=== PATIENT | female | born 1985 | race African-American/Black ===

== ENCOUNTER 2016-08-19 19:59 | Emergency (ER) | payer SELFPAY ==
[~2016-08-19] VITALS: Ht 175.3 cm; Wt 108.9 kg
[~2016-08-19 19:59] MED LIST: ABILIFY15 MG ORAL; AUGMENTIN TAB875 MG ORAL; BACTRIM DS TAB1 EAC1 ORAL; BACTRIM-DS1 EA PO; BENADRYL25 M3 PO; CEPHALEXIN500 MG ORAL; CEPHALEXIN500 MG PO; CLEOCIN HCL150 MG PO; CLINDAMYCIN HC150 MG ORAL; IBUPROFEN600 MG ORAL; IBUPROFEN800 MG ORAL; KEFLEX500 MG ORAL; MEDROL DOSEPAK4 MG ORAL; NAPROSYN375 M1 ORAL; NKM; NORCO 5-325 TA1 EAC1 ORAL; NORCO 5-325 TA1 EACH ORAL; TRAMADOL HCL50 MG ORAL; TRIAMCINOLONE A60 M1 TP
[2016-08-19 20:30] VITALS: BP 107/76
[2016-08-19] MEDS ORDERED: KEFLEX500 MG ORAL (21:25)
[2016-08-19] MEDS ORDERED: DOXYCYCLINE MO100 MG ORAL (21:25)
[2016-08-19] MEDS ORDERED: NORCO 5-325 TA1 EAC1 ORAL (21:26)
[2016-08-19] MEDS ORDERED: Lidocaine 2% 20mg/ml/Epi 0.005mg/ml 20ml vial INJ ONE (21:30)
[2016-08-19 22:15] VITALS: BP 110/78
--- NOTE | 2016-08-22 12:25 | Emergency Room Report ---
History of Present Illness General Chief Complaint: Skin Rash/Abscess Source: Patient Present Illness HPI This is a 31-year-old female presented after increased redness and swelling to her right leg as well as her right buttock crease. Patient gradual onset of symptoms of the past 2 days. She denied any fever. She had prior history of similar symptoms in the past. Patient denied any history of diabetes. She states that she has had hidradenitis. She's not currently taking antibiotics and has not taken antibiotics recently. Allergies: Uncoded Allergies: nuts (Allergy, Severe, Anaphylaxis, 11/18/13) Patient History Past Medical History: see triage record Last Menstrual Period: last week Reviewed Nursing Documentation: PMH: Agreed, PSxH: Agreed Review of Systems All Other Systems: negative except mentioned in HPI Physical Exam Vital Signs Date Time Temp Pulse Resp B/P Pulse Ox O2 Delivery O2 Flow Rate FiO2 08/19/16 20:27 97.9 89 16 104/74 98 Room Air General Appearance: well appearing, no apparent distress, alert, GCS 15, non- toxic Head: normocephalic, atraumatic ENT: hearing grossly normal, normal voice Neck: full range of motion, supple Respiratory: no respiratory distress, speaking full sentences Cardiovascular #1: regular rate, rhythm Gastrointestinal: normal inspection, soft Musculoskeletal: no calf tenderness Neurologic: normal gait Psychiatric: mood/affect normal Skin: other - fluctuance to right labial area, right thigh Procedures Incision and Drainage Incision and Drainage : Consent: Verbal Blade Size: 11 I & D Procedure: betadine prep, sterile drapes applied, sterile dressing applied Wound Location: pelvis Wound's Depth, Shape: superficial Wound Length (cm): 1 Wound Explored: clean Anesthesia: Lidocaine w/ Epi Volume Anesthetic (ccs): 4 Patient Tolerated: Well Complications: None Progress large amount of green purulent discharge Medical Decision Making Diagnostic Impression: Primary Impression: Abscess ER Course Patient presented for skin rash. Differential diagnosis included was not limited to abscess, cellulitis, folliculitis, Fourniere's gangrene Patient's benign exam and does not appear to require any further imaging or laboratory testing at this time. was negative. Patient given prescription for Keflex and Bactrim. The patient is advised to follow up with primary care doctor in 2 days for recheck. Patient is advised to return if any worsening condition or if any changes in status that are concerning. Last Vital Signs Date Time Temp Pulse Resp B/P Pulse Ox O2 Delivery O2 Flow Rate FiO2 08/19/16 22:15 98.0 84 17 110/78 100 Room Air Status: improved Disposition: HOME, SELF-CARE Condition: Stable Scripts Hydrocodone Bit/Acetaminophen 5-325* (NORCO 5-325 TABLET*) 1 Each Tablet 1 TAB ORAL Q6HR Y for For Pain, #10 TAB Prov: Jesse Mensah 08/19/16 Cephalexin* (KEFLEX*) 500 Mg Capsule 500 MG ORAL Q6H, #28 CAP 0 Refills Prov: Jesse Mensah 08/19/16 Doxycycline Monohydrate* (DOXYCYCLINE MONOHYDRATE*) 100 Mg Capsule 100 MG ORAL Q12H, #14 CAP 0 Refills Prov: Jesse Mensah 08/19/16 Referrals: NOT CHOSEN [facility]/,REFERRING (PCP) Patient Instructions: Jesse Tejada Aug 22, 2016 12:25
== END 2016-08-19 22:15 | disposition home or self-care (01) ==
LOC: EMR 20:44
DX: L02.415 Cutaneous abscess of right lower limb (principal); Z91.018 Allergy to other foods
CPT/HCPCS: 81025; 99284

== ENCOUNTER 2016-12-01 10:43 | Emergency (ER) | payer MEDICAID ==
[~2016-12-01] VITALS: Ht 175.3 cm; Wt 115.7 kg
[~2016-12-01 10:43] MED LIST changes: +DOXYCYCLINE MO100 MG ORAL
[2016-12-01] MEDS ORDERED: IBUPROFEN600 MG ORAL (11:47)
[2016-12-01] MEDS ORDERED: ACETAMINOPHEN-1 EAC1 ORAL (11:47)
[2016-12-01] MEDS ORDERED: KEFLEX500 MG ORAL (11:47)
[2016-12-01 12:01] VITALS: BP 102/71
--- NOTE | 2016-12-05 14:31 | Emergency Room Report ---
History of Present Illness General Chief Complaint: General Complaint Source: Patient Present Illness HPI Patient presents with complaints of discomfort to the right buttock area She feels that there is an abscess in that region She reports that she has had this several times in the past Denies any fevers or chills Pain associated with it as /10 Denies any vomiting or diarrhea Allergies: Uncoded Allergies: nuts (Allergy, Severe, Anaphylaxis, 11/18/13) Patient History Past Medical History: see triage record Pertinent Family History: none Last Menstrual Period: 11/21/16 Reviewed Nursing Documentation: PMH: Agreed, PSxH: Agreed Nursing Documentation-PMH Past Medical History: No History, Except For Review of Systems All Other Systems: negative except mentioned in HPI Physical Exam Vital Signs Date Time Temp Pulse Resp B/P (MAP) Pulse Ox O2 Delivery O2 Flow Rate FiO2 12/01/16 10:51 98.1 86 14 116/83 97 Room Air Sp02 EP Interpretation: reviewed, normal General Appearance: well appearing, no apparent distress Head: normocephalic, atraumatic Eyes: bilateral eye PERRL, bilateral eye EOMI ENT: normal pharynx Neck: full range of motion, supple Respiratory: lungs clear, normal breath sounds Cardiovascular #1: regular rate, rhythm Gastrointestinal: normal inspection, non tender, soft Musculoskeletal: normal inspection Neurologic: normal inspection, alert, oriented x3 Skin: other - A deep of the right buttock area there is some small pustular lesions, mild discharge is noted, there is no obvious flaring or streaking of erythema, the area does not appear to spread to the vaginal region Lymphatic: no adenopathy Medical Decision Making Diagnostic Impression: Primary Impression: Abscess ER Course Patient has had multiple areas of infectious pathology in the past Reports that she has a history of hidradenitis At this time the area does not appear to be systemic Patient has placed on antibiotics and requires close outpatient followup for specialty referral Last Vital Signs Date Time Temp Pulse Resp B/P (MAP) Pulse Ox O2 Delivery O2 Flow Rate FiO2 12/01/16 12:01 79 18 102/71 99 Room Air 12/01/16 12:01 98.6 Status: unchanged Disposition: HOME, SELF-CARE Condition: Stable Scripts Acetaminophen With Codeine (T#3) (TYLENOL #3 TAB*) Y Tab 1 TAB ORAL Q8H Y for For Pain, #10 TAB Prov: JAMEHDOR,ALI D.O. 12/01/16 Ibuprofen* (MOTRIN*) 600 Mg Tablet 600 MG ORAL Q8H Y for For Pain, #20 TAB 0 Refills Prov: LUIS MIGUEL HERNANDEZ D.O. 12/01/16 Cephalexin* (KEFLEX*) 500 Mg Capsule 500 MG ORAL Q6H, #28 CAP 0 Refills Prov: LUIS MIGUEL HERNANDEZ D.O. 12/01/16 Referrals: NOT CHOSEN IPA/MD,REFERRING Patient Instructions: Abscess, [id number] Additional Instructions: Patient is provided with the discharge instructions notified to follow up with primary doctor in the next 2-3 days otherwise return to the er with any worsening symptoms. Please note that this report is being documented using [employer] technology. This can lead to erroneous entry secondary to incorrect interpretation by the dictating instrument. LUIS MIGUEL HERNANDEZ D.O. Dec 05, 2016 14:31
== END 2016-12-01 12:01 | disposition home or self-care (01) ==
LOC: EMR 11:17
DX: L02.31 Cutaneous abscess of buttock (principal); Z91.018 Allergy to other foods
CPT/HCPCS: 99284

== ENCOUNTER 2017-01-21 07:45 | Emergency (ER) | payer MEDICAID ==
[~2017-01-21] VITALS: Ht 175.3 cm; Wt 115.7 kg
[~2017-01-21 07:45] MED LIST changes: +ACETAMINOPHEN-1 EAC1 ORAL
[2017-01-21 07:52] VITALS: BP 120/71
[2017-01-21] MEDS ORDERED: IBUPROFEN400 MG ORAL (08:24)
[2017-01-21 08:33] VITALS: BP 117/72
--- NOTE | 2017-01-21 09:27 | Emergency Room Report ---
History of Present Illness General Chief Complaint: Skin Rash/Abscess Source: Patient Present Illness HPI Patient is a 31-year-old female who presented after increased left-sided pain to her axillary area. The patient gradual onset of symptoms over the past 4 days. She reports having prior history of hidradenitis suppuritiva she presenting intermittent abscesses approximately every 3-4 months. She denied any fever. She had not been vomiting. She denies other locations of pain. She had been taking clindamycin for one day. She had a referral to a surgeon but has not yet made an appointment. Allergies: Uncoded Allergies: nuts (Allergy, Severe, Anaphylaxis, 11/18/13) Patient History Past Medical History: see triage record Last Menstrual Period: 01/05/17 Reviewed Nursing Documentation: PMH: Agreed, PSxH: Agreed Nursing Documentation-PM Past Medical History: No Stated History Review of Systems All Other Systems: negative except mentioned in HPI Physical Exam Vital Signs Date Time Temp Pulse Resp B/P (MAP) Pulse Ox O2 Delivery O2 Flow Rate FiO2 01/21/17 07:52 98.1 80 18 120/71 100 Room Air Sp02 EP Interpretation: reviewed, normal General Appearance: normal inspection, well appearing, no apparent distress, alert, GCS 15, non-toxic Head: atraumatic ENT: normal ENT inspection, hearing grossly normal, normal voice Neck: normal inspection, full range of motion, supple, no bony tend Respiratory: normal inspection, lungs clear, normal breath sounds, no respiratory distress, no retraction, no wheezing Cardiovascular #1: regular rate, rhythm, no edema Gastrointestinal: normal inspection, normal bowel sounds, non tender, soft, no guarding, no hernia Genitourinary: no CVA tenderness Musculoskeletal: normal inspection, back normal, normal range of motion Neurologic: normal inspection, alert, oriented x3, responsive, 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, speech normal Psychiatric: normal inspection, judgement/insight normal, mood/affect normal Skin: no rash, other - fluctuant area to left axilla about 3 cm in size Procedures Incision and Drainage Incision and Drainage : Consent: Emergent Site: axillary Blade Size: 11 I & D Procedure: betadine prep, sterile drapes applied, sterile dressing applied Wound Location: axilla Wound's Depth, Shape: superficial Wound Length (cm): 1 Wound Explored: clean Anesthesia: 1% Lidocaine Volume Anesthetic (ccs): 5 Patient Tolerated: Well Complications: None Medical Decision Making Diagnostic Impression: Primary Impression: Abscess of axilla, left Additional Impression: Hidradenitis suppurativa ER Course Patient presented for skin rash. Differential diagnosis included was not limited to abscess, cellulitis, folliculitis, The patient noted evidence of axillary abscess. The patient was consented for incision and drainage. Abscess was incised with 11 blade a large amount purulent drainage. The patient tolerated well. The patient is advised to have a recheck with primary care physician in 2 days. She is advised to return if she began having increased bleeding, fevers, or other concerns.She is advised to continue her antibiotics Last Vital Signs Date Time Temp Pulse Resp B/P (MAP) Pulse Ox O2 Delivery O2 Flow Rate FiO2 01/21/17 08:33 98.1 78 16 117/72 99 Room Air Status: improved Disposition: HOME, SELF-CARE Condition: Stable Scripts Ibuprofen* (MOTRIN*) 400 Mg Tablet 400 MG ORAL Q8H, #30 TAB 0 Refills Prov: Jesse Mensah 01/21/17 Referrals: BIBIANA SANCHEZ Departure Forms: Return to Work Return to Work in (Days): 3 Patient Instructions: Jesse Tejada Jan 21, 2017 09:27
== END 2017-01-21 08:34 | disposition home or self-care (01) ==
LOC: EMR 08:11
DX: L02.412 Cutaneous abscess of left axilla (principal); L73.2 Hidradenitis suppurativa
CPT/HCPCS: 10060; 99283

== ENCOUNTER 2017-08-05 09:43 | Emergency (ER) | payer MEDICAID ==
[~2017-08-05] VITALS: Ht 175.3 cm; Wt 127.0 kg
[~2017-08-05 09:43] MED LIST changes: +IBUPROFEN400 MG ORAL
[2017-08-05 09:53] VITALS: BP 114/80
[2017-08-05] MEDS ORDERED: BACTRIM DS TAB1 EAC1 ORAL (10:06)
[2017-08-05] MEDS ORDERED: CEPHALEXIN500 MG ORAL (10:06)
[2017-08-05] MEDS ORDERED: IBUPROFEN600 MG ORAL (10:06)
[2017-08-05] MEDS ORDERED: ACETAMINOPHEN-1 EAC1 ORAL (10:06)
--- NOTE | 2017-08-05 10:14 | Emergency Room Report ---
History of Present Illness General Chief Complaint: Skin Rash/Abscess Source: Patient Present Illness HPI Patient present with complaints of infection to the lower buttock area Patient has had multiple abscess/cellulitis infections Patient reports that she recently had surgery for the axilla Over the past 4 days now she has noticed some increased redness and discomfort to the left buttock area Denies any discharge pain is 3 out of 10 worse with sitting Denies any fevers or chills denies any difficulty with bowel movement Allergies: Uncoded Allergies: nuts (Allergy, Severe, Anaphylaxis, 11/18/13) Patient History Past Medical History: see triage record Pertinent Family History: none Reviewed Nursing Documentation: PMH: Agreed; PSxH: Agreed Review of Systems All Other Systems: negative except mentioned in HPI Physical Exam Vital Signs Date Time Temp Pulse Resp B/P (MAP) Pulse Ox O2 Delivery O2 Flow Rate FiO2 08/05/17 09:49 98.1 89 20 114/80 99 Room Air 98.1 Sp02 EP Interpretation: reviewed, normal General Appearance: well appearing, no apparent distress Head: normocephalic, atraumatic Eyes: bilateral eye PERRL, bilateral eye EOMI ENT: normal pharynx Neck: supple Respiratory: lungs clear, normal breath sounds Cardiovascular #1: regular rate, rhythm Gastrointestinal: non tender, soft Rectal: other - Left buttock area 2-3 cm area of cellulitis erythema no obvious fluctuance, the area does not involve the perirectal or rectal area, Musculoskeletal: normal inspection, back normal Neurologic: alert, oriented x3 Skin: other - As above Lymphatic: no adenopathy Medical Decision Making Diagnostic Impression: Primary Impression: cellulitis ER Course Given the area and presentation patient will be trialed on oral antibiotics I cannot palpate any obvious fluctuance or abscess formation Patient also has underlying history and findings of chronic superlative hidradenitis And requires appropriate outpatient specialty follow-up Last Vital Signs Date Time Temp Pulse Resp B/P (MAP) Pulse Ox O2 Delivery O2 Flow Rate FiO2 08/05/17 09:53 98.1 89 20 114/80 99 Room Air 98.1 Status: unchanged Disposition: HOME, SELF-CARE Condition: Stable Scripts Acetaminophen With Codeine (T#3) (TYLENOL #3 TAB*) Y Tab 1 TAB ORAL Q8H PRN for For Pain, #12 TAB Prov: Arlin Sarmiento DO 08/05/17 Ibuprofen* (MOTRIN*) 600 Mg Tablet 600 MG ORAL Q8H PRN for For Pain, #20 TAB 0 Refills Prov: Arlin Sarmiento DO 08/05/17 Trimethoprim/Sulfamethoxazole 160/800* (BACTRIM DS TABLET*) 1 Each Tablet 1 TAB ORAL Q12H, #20 TAB 0 Refills Prov: Arlin Sarmiento DO 08/05/17 Cephalexin* (KEFLEX*) 500 Mg Capsule 500 MG ORAL EVERY 6 HOURS, #40 CAP Prov: Arlin Sarmiento DO 08/05/17 Patient Instructions: Cellulitis, [id number] Additional Instructions: Patient is provided with the discharge instructions notified to follow up with primary doctor in the next 2-3 days otherwise return to the er with any worsening symptoms. Please note that this report is being documented using [employer] technology. This can lead to erroneous entry secondary to incorrect interpretation by the dictating instrument. Arlin Sarmiento DO August 05, 2017 10:14
[2017-08-05 10:22] VITALS: BP 114/80
[2017-08-06] MEDS ORDERED: PEPCID AC20 M2 PO (12:41)
== END 2017-08-05 10:23 | disposition home or self-care (01) ==
LOC: EMR 10:11
DX: L03.317 Cellulitis of buttock (principal)
CPT/HCPCS: 99283

== ENCOUNTER 2017-08-06 12:24 | Emergency (ER) | payer MEDICAID ==
[~2017-08-06] VITALS: Ht 175.3 cm; Wt 127.0 kg
[2017-08-06 12:31] VITALS: BP 123/82
[2017-08-06] MEDS ORDERED: PEPCID AC20 M2 PO (12:41)
[2017-08-06] MEDS ORDERED: Dicyclomine HCl 10mg/5ml oral soln ORAL ONE (12:45)
[2017-08-06] MEDS ORDERED: Mylanta II UD 30ml ORAL ONE (12:45)
[2017-08-06 13:19] VITALS: BP 123/82
--- NOTE | 2017-08-07 21:51 | Emergency Room Report ---
History of Present Illness General Chief Complaint: Chest Pain Source: Patient Present Illness HPI Patient presents with complaints of initially left lower chest pain however on further discussion sounds to be epigastric and some left upper abdominal pain Patient was recently seen here and placed on antibiotics for a buttock cellulitis Patient is asking how she can be diagnosed with ulcers Denies any vomiting or diarrhea Denies any fevers or chills Pain is 3 out of 10 burning Allergies: Uncoded Allergies: nuts (Allergy, Severe, Anaphylaxis, 11/18/13) Patient History Past Medical History: see triage record Pertinent Family History: none Reviewed Nursing Documentation: PMH: Agreed; PSxH: Agreed Review of Systems All Other Systems: negative except mentioned in HPI Physical Exam Vital Signs Date Time Temp Pulse Resp B/P (MAP) Pulse Ox O2 Delivery O2 Flow Rate FiO2 08/06/17 12:28 97.8 82 20 123/82 99 Room Air 97.9 Sp02 EP Interpretation: reviewed, normal General Appearance: well appearing, no apparent distress Head: normocephalic, atraumatic Eyes: bilateral eye PERRL, bilateral eye EOMI ENT: hearing grossly normal, normal pharynx, TMs + canals normal, uvula midline Neck: full range of motion, supple, no meningismus, no bony tend Respiratory: lungs clear, normal breath sounds, no rhonchi, no respiratory distress, no retraction, no accessory muscle use Cardiovascular #1: normal peripheral pulses, regular rate, rhythm, no edema, no gallop, no JVD, no murmur Gastrointestinal: normal bowel sounds, non tender, soft, no mass, no organomegaly, non-distended, no guarding, no hernia, no pulsatile mass, no rebound Genitourinary: no CVA tenderness Musculoskeletal: normal inspection Neurologic: oriented x3, responsive, junior engineer III-XII nml as tested, motor strength/ tone normal, sensory intact Psychiatric: mood/affect normal Skin: normal color, no rash, warm/dry, palpation normal Lymphatic: normal inspection, no adenopathy Medical Decision Making Diagnostic Impression: Primary Impression: abdominal pain Additional Impression: medication reaction ER Course With the history exam and presentation, multiple differentials considered, including but not limited to appendicitis, gastritis, cholecystitis, diverticulitis Patient appears to be having a reaction to the antibiotics Has appropriate vital signs I do not suspect bowel perforation Patient provided with symptomatic relief And requires close outpatient follow-up Last Vital Signs Date Time Temp Pulse Resp B/P (MAP) Pulse Ox O2 Delivery O2 Flow Rate FiO2 08/06/17 13:19 97.9 72 20 123/82 99 Room Air 97.9 Status: improved Disposition: HOME, SELF-CARE Condition: Improved Scripts Famotidine (PEPCID AC) 20 Mg Tablet 20 MG PO DAILY, #20 TAB Prov: Arlin Sarmiento DO 08/06/17 Referrals: NOT CHOSEN IPA/MD,REFERRING Patient Instructions: Antibiotic Medicine, Abdominal Pain, Adult Additional Instructions: Patient is provided with the discharge instructions notified to follow up with primary doctor in the next 2-3 days otherwise return to the er with any worsening symptoms. Please note that this report is being documented using [employer] technology. This can lead to erroneous entry secondary to incorrect interpretation by the dictating instrument. Arlin Sarmiento DO August 07, 2017 21:50
--- NOTE | 2017-08-08 17:15 | Cardiology Report ---
APPROVED REPORT EKG Measurement Heart [id number] Normal sinus rhythm with sinus arrhythmia Nonspecific T wave abnormality Abnormal ECG
== END 2017-08-06 13:19 | disposition home or self-care (01) ==
LOC: EMR 12:29
DX: R10.9 Unspecified abdominal pain (principal); T50.995A Adverse effect of other drugs, medicaments and biological substances, initial encounter; Z91.018 Allergy to other foods
CPT/HCPCS: 93005; 99283

== ENCOUNTER 2018-02-16 12:25 | Emergency (ER) | payer MEDICAID ==
[~2018-02-16] VITALS: Ht 175.3 cm; Wt 118.8 kg
[~2018-02-16 12:25] MED LIST changes: +BACITRACIN15 GM TOPIC; +PEPCID AC20 M2 PO; +TYLENOL325 MG ORAL
[2018-02-16 12:40] VITALS: BP 126/84
[2018-02-16] MEDS ORDERED: CEPHALEXIN500 MG ORAL (13:07)
[2018-02-16] MEDS ORDERED: IBUPROFEN600 MG ORAL (13:07)
[2018-02-16] MEDS ORDERED: BACTRIM DS TAB1 EAC1 ORAL (13:07)
[2018-02-16 13:28] VITALS: BP 121/78
--- NOTE | 2018-02-16 22:00 | Emergency Room Report ---
History of Present Illness General Chief Complaint: Skin Rash/Abscess Source: Patient Present Illness HPI The patient is a 33-year-old female with a history of hidradenitis suppurativa presenting for possible skin infection of the groin. She states that she has had surgery of axilla. This feels similar. Pain is a 10/10 dull ache, worse with touch. She denies any DC from the area. She denies N, V, F, chills, abd pain, diarrhea Allergies: Uncoded Allergies: nuts (Allergy, Severe, Anaphylaxis, 11/18/13) Patient History Past Medical History: see triage record Pertinent Family History: none Last Menstrual Period: 01/2018 Reviewed Nursing Documentation: PMH: Agreed; PSxH: Agreed Nursing Documentation-PMH Past Medical History: No History, Except For Review of Systems All Other Systems: negative except mentioned in HPI Physical Exam Vital Signs Date Time Temp Pulse Resp B/P (MAP) Pulse Ox O2 Delivery O2 Flow Rate FiO2 02/16/18 12:35 98.6 86 14 126/84 95 Room Air Sp02 EP Interpretation: reviewed, normal General Appearance: no apparent distress, alert, GCS 15, non-toxic Head: normocephalic, atraumatic Gastrointestinal: normal bowel sounds, non tender, soft, non-distended, no guarding, no rebound Musculoskeletal: back normal, gait/station normal, normal range of motion, non- tender Neurologic: alert, oriented x3, responsive, motor strength/tone normal, sensory intact, speech normal Psychiatric: judgement/insight normal, memory normal, mood/affect normal, no suicidal/homicidal ideation Skin: rash - gluteal fold has many pitted areas and papules. No fluctuance. TTP Lymphatic: no adenopathy Medical Decision Making PA Attestation Dr. Jerez is my supervising physician. Patient management was discussed with my supervising physician Diagnostic Impression: Primary Impression: Hidradenitis suppurativa ER Course The patient is a 33-year-old female with a history of hidradenitis suppurativa presenting for possible skin infection of the groin Differential diagnoses considered but not limited to: hydradenitis suppurativa, abscess, cellulitis, PE: Afebrile. NAD gluteal fold has many pitted areas and papules. No fluctuance. TTP. No DC. No perianal abscess. Pt is given prescription for abx and needs to F/U with PCP for referral to surgery. ER precautions given Last Vital Signs Date Time Temp Pulse Resp B/P (MAP) Pulse Ox O2 Delivery O2 Flow Rate FiO2 02/16/18 13:28 98.6 81 18 121/78 95 Room Air Status: improved Disposition: HOME, SELF-CARE Condition: Improved Scripts Ibuprofen* (MOTRIN*) 600 Mg Tablet 600 MG ORAL Q8H PRN for For Pain, #30 TAB 0 Refills Prov: LIZETH ROBBINS P.A. 02/16/18 Trimethoprim/Sulfamethoxazole 160/800* (BACTRIM DS TABLET*) 1 Each Tablet 1 TAB ORAL TWICE A DAY, #14 TAB Prov: LIZETH ROBBINS P.A. 02/16/18 Cephalexin* (KEFLEX*) 500 Mg Capsule 500 MG ORAL EVERY 6 HOURS, #28 CAP Prov: LIZETH ROBBINS P.A. 02/16/18 Referrals: [facility],REFERRING (PCP) Patient Instructions: Hidradenitis Suppurativa Additional Instructions: I discussed my findings with the patient. All questions and concerns have been answered. Treatment and medication compliance have been addressed. I advised the patient that they need to follow up with PMD in 3-5 days. Return to ED if symptoms worsen, new symptoms arise, or if needed for any reason. Patient verbalized understanding of discharge instructions. The patient was told she needs to follow-up with specialty for further treatment including possible surgery LIZETH ROBBINS Feb 16, 2018 22:00
== END 2018-02-16 13:30 | disposition home or self-care (01) ==
LOC: EMR 13:11
DX: L73.2 Hidradenitis suppurativa (principal); Z91.018 Allergy to other foods
CPT/HCPCS: 99283

== ENCOUNTER 2018-09-26 09:44 | Emergency (ER) | payer MEDICAID ==
[~2018-09-26] VITALS: Ht 175.3 cm; Wt 128.8 kg
[2018-09-26 09:53] VITALS: BP 108/69
--- NOTE | 2018-09-26 10:06 | NUR ---
ED Nurse Note: Pt. AAOx4. Ambulatory. Walked in to ER due to a lump noted on the R underarm. Per pt. it has been an ongoing medical issue for her. Has seen a dermatoloist before but it did not help her. No drainage noted on the affected site
[2018-09-26] MEDS ORDERED: IBUPROFEN600 MG ORAL (10:19)
[2018-09-26] MEDS ORDERED: BACTRIM DS TAB1 EAC1 ORAL (10:19)
[2018-09-26] MEDS ORDERED: CEPHALEXIN500 MG ORAL (10:19)
[2018-09-26 10:24] VITALS: BP 123/69
--- NOTE | 2018-09-26 10:24 | NUR ---
ER DISCHARGE NOTE: Patient is cleared to be discharged per ERMD, pt is aox4, on room air, with stable vital signs. pt was given dc and prescription instructions, pt was able to verbalize understanding, pt id band removed. pt is able to ambulate with steady gait. pt took all belongings.
--- NOTE | 2018-09-26 10:38 | Emergency Room Report ---
History of Present Illness General Chief Complaint: Skin Rash/Abscess Source: Patient Present Illness HPI 33-year-old female presents ED for evaluation. Complaining of an abscess under her right axilla for the last 3 days. Has prior history of abscess and hidradenitis. Has had prior surgery on both axilla with the gland removed on the left but not on the right. Pain is dull, 7 out of 10, nonradiating. Denies fevers or chills. Denies any discharge. No other aggravating relieving factors. 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) Patient History Past Medical History: psych hx, other - hidradenitis Past Surgical History: none Pertinent Family History: none Social History: Denies: smoking, alcohol use, drug use Last Menstrual Period: 09/10/2018 Now: No Immunizations: UTD Reviewed Nursing Documentation: PMH: Agreed; PSxH: Agreed Nursing Documentation-PMH Past Medical History: No Stated History History Of Psychiatric Problem: Yes - Schizophrenia Review of Systems All Other Systems: negative except mentioned in HPI Physical Exam Vital Signs Date Time Temp Pulse Resp B/P (MAP) Pulse Ox O2 Delivery O2 Flow Rate FiO2 09/26/18 09:53 98.4 71 19 108/69 99 Room Air Sp02 EP Interpretation: reviewed, normal General Appearance: no apparent distress, alert, GCS 15, non-toxic Head: normocephalic Eyes: bilateral eye normal inspection, bilateral eye PERRL ENT: normal ENT inspection Neck: normal inspection Respiratory: normal inspection Cardiovascular #1: normal inspection Gastrointestinal: normal inspection Rectal: deferred Genitourinary: no CVA tenderness Musculoskeletal: back normal, gait/station normal, normal range of motion, non- tender Neurologic: alert, oriented x3, responsive, motor strength/tone normal, sensory intact, speech normal Psychiatric: normal inspection Skin: other - induration/erythema R axilla. no fluctuance or discharge Lymphatic: no adenopathy Medical Decision Making Diagnostic Impression: Primary Impression: Axillary abscess ER Course Hospital Course 33-year-old female presents to ED with pain to R axilla Differential diagnoses include: Cellulitis, dermatitis, insect bite, abscess Clinical course Patient placed on stretcher. After initial history, physical exam reveals a female in no acute distress. On exam there is duration and erythema noted to the right axilla. Nonfluctuant. No discharge. Discussed findings with patient. Not amenable to I&D at this time. Recommend conservative therapy with warm compresses and antibiotics. States that she does have plastic surgeon to see but is requesting referrals. I will provide her with referrals. Safe for discharge with close outpatient follow-up Diagnosis - axillary abscess stable and discharged to home with prescription for keflex, bactrim, motrin. warm compresses. Instructed to followup with plastics. Instructed return to ED if symptoms recur or worsen Last Vital Signs Date Time Temp Pulse Resp B/P (MAP) Pulse Ox O2 Delivery O2 Flow Rate FiO2 09/26/18 09:53 98.4 78 19 108/69 (82) 99 Room Air Status: improved Disposition: HOME, SELF-CARE Condition: Stable Scripts Ibuprofen* (MOTRIN*) 600 Mg Tablet 600 MG ORAL THREE TIMES A DAY, #30 TAB 0 Refills Prov: Norman Bunch MD 09/26/18 Trimethoprim/Sulfamethoxazole 160/800* (BACTRIM DS TABLET*) 1 Each Tablet 1 TAB ORAL Q12H, #14 TAB 0 Refills Prov: Norman Bunch MD 09/26/18 Cephalexin* (KEFLEX*) 500 Mg Capsule 500 MG ORAL EVERY 6 HOURS for 7 Days, CAP Prov: Norman Bunch MD 09/26/18 Referrals: Roderick Tripp MD, Amir MD Patient Instructions: Hidradenitis Suppurativa Norman Bunch MD Sep 26, 2018 10:38
== END 2018-09-26 10:25 | disposition home or self-care (01) ==
LOC: EMR 10:25
DX: L02.411 Cutaneous abscess of right axilla (principal); F20.9 Schizophrenia, unspecified
CPT/HCPCS: 99283

== ENCOUNTER 2018-10-18 17:01 | Emergency (ER) | payer MEDICAID ==
[~2018-10-18] VITALS: Ht 175.3 cm; Wt 127.9 kg
[2018-10-18] MEDS ORDERED: RISPERDAL0.5 MG ORAL (17:17)
--- NOTE | 2018-10-18 17:25 | NUR ---
ED Nurse Note: Patient ambulated to ER from home c/o lower buttocks abscess which is painful at 10/10. Patient is alert and oriented x4 and ambulatory. skin clean and intact. calm and cooperative. no acute distress noted at this time.
[2018-10-18 17:26] VITALS: BP 118/79
[2018-10-18] MEDS ORDERED: Lidocaine 2% 20mg/ml/EPI 0.01mg/ml 20ml INJ ONE (17:30)
--- NOTE | 2018-10-18 18:28 | Emergency Room Report ---
History of Present Illness General Chief Complaint: Skin Rash/Abscess Source: Patient Present Illness HPI 33-year-old female presents to the emergency department complaining of 10 out of 10 severity pain, tenderness, swelling, erythema and induration to the right buttock over the course of 4 days. Patient has a history of frequent abscess with diagnosis of hidradenitis she denies fevers or chills she denies history of rectal abscess. She states she attempted to take some leftover Keflex and Bactrim initially however her symptoms did progress she states that on occasion she would have resistance to Keflex Bactrim. She denies or suspicion of . No other lesions elsewhere on the body no swollen tender lymph nodes. Sitting aggravates her symptoms. Allergies: Uncoded Allergies: nuts (Allergy, Severe, Anaphylaxis, 11/18/13) Patient History Past Medical History: see triage record Past Surgical History: none Pertinent Family History: none Last Menstrual Period: 10/11/18 Now: No Immunizations: UTD Reviewed Nursing Documentation: PMH: Agreed; PSxH: Agreed Nursing Documentation-PMH Past Medical History: No History, Except For Review of Systems All Other Systems: negative except mentioned in HPI Physical Exam Vital Signs Date Time Temp Pulse Resp B/P (MAP) Pulse Ox O2 Delivery O2 Flow Rate FiO2 10/18/18 17:13 98.2 68 16 118/79 (92) 98 Room Air Sp02 EP Interpretation: reviewed, normal General Appearance: alert, GCS 15, non-toxic, mild distress Head: normocephalic, atraumatic Eyes: bilateral eye normal inspection, bilateral eye PERRL ENT: hearing grossly normal, normal voice Neck: full range of motion Respiratory: normal inspection, lungs clear, normal breath sounds, speaking full sentences Cardiovascular #1: regular rate, rhythm Musculoskeletal: back normal, gait/station normal, normal range of motion, non- tender Neurologic: alert, oriented x3, responsive, motor strength/tone normal, sensory intact, speech normal, grossly normal Psychiatric: judgement/insight normal Skin: other - 2cm indurated, area of joints with erythema and warmth and some superficial discharge in the right lower buttock. Lymphatic: no adenopathy Medical Decision Making PA Attestation Dr. Saha Is my supervising Physician whom patient management has been discussed with. Diagnostic Impression: Primary Impression: Cellulitis and abscess of buttock ER Course 33-year-old female presents to the emergency department complaining of 10 out of 10 severity pain, tenderness, swelling, erythema and induration to the right buttock over the course of 4 days. Patient has a history of frequent abscess with diagnosis of hidradenitis she denies fevers or chills she denies history of rectal abscess. She states she attempted to take some leftover Keflex and Bactrim initially however her symptoms did progress she states that on occasion she would have resistance to Keflex Bactrim. She denies or suspicion of . No other lesions elsewhere on the body no swollen tender lymph nodes. Sitting aggravates her symptoms. Ddx considered but are not limited to cellulitis, abscess, cystic acne, necrotizing fasciitis, insect bite. Vital signs: are WNL, pt. is afebrile H&PE are most consistent with abscess and cellulitis of the right buttock. ORDERS: none required at this time, the diagnosis is clinical ED INTERVENTIONS: - [place] PO - Tdap vaccination is administered. -I & D.--- When the time came to inject local anesthetic patient became anxious and decided against having incision and drainage performed she is requesting just oral antibiotics. ----Semaj with this patient that the procedure is highly recommended especially with history of antibiotic resistance despite this recommendation and discussing that this is standard of care the patient still is declining incision and drainage at this time and agrees that she will return to the emergency department if her symptoms continue to progress. DISCHARGE: At this time pt. is stable for d/c to home. Will provide printed patient care instructions, and any necessary prescriptions. Care plan and follow up instructions have been discussed with the patient prior to discharge. Last Vital Signs Date Time Temp Pulse Resp B/P (MAP) Pulse Ox O2 Delivery O2 Flow Rate FiO2 10/18/18 17:26 98.2 81 16 118/79 98 Room Air Disposition: HOME, SELF-CARE Condition: Stable Scripts Ibuprofen* (MOTRIN*) 600 Mg Tablet 600 MG ORAL THREE TIMES A DAY, #30 TAB 0 Refills Prov: Kerry Clark 10/18/18 Mupirocin* (MUPIROCIN*) 22 Gm Oint...g. 1 APPLIC TOPIC THREE TIMES A DAY, #22 GM Prov: Kerry Clark 10/18/18 Acetaminophen With Codeine (T#3) (TYLENOL #3 TAB*) Y Tab 1 TAB ORAL Q6H PRN for For Pain, #9 TAB Prov: Kerry Clark 10/18/18 Clindamycin Hcl (CLINDAMYCIN HCL) 300 Mg Capsule 300 MG ORAL FOUR TIMES A DAY for 7 Days, #28 CAP Prov: Kerry Clark 10/18/18 Patient Instructions: Abscess Additional Instructions: Take medications as directed. Follow up with a Primary Care Provider in 3-5 days, even if your symptoms have resolved. Return sooner to ED if new symptoms occur, or current symptoms become worse. - Please note that this Emergency Department Report was dictated using [employer] worker technology software, occasionally this can lead to erroneous entry secondary to interpretation by the dictation equipment. Kerry Clark Oct 18, 2018 18:28
[2018-10-18] MEDS ORDERED: Tetanus/Diptheria/Pertussis IM ONE (18:30)
[2018-10-18] MEDS ORDERED: HYDROcodone/Acetamin 5/325 tab ORAL ONE (18:30)
[2018-10-18] MEDS ORDERED: Clindamycin 150mg cap ORAL ONE (18:30)
--- NOTE | 2018-10-18 19:01 | NUR ---
HAND-OFF: Report given to CHANTAL Davis. no orders to carry at this moment.
[2018-10-18] MEDS ORDERED: MUPIROCIN22 GM TOPIC (19:29)
[2018-10-18] MEDS ORDERED: ACETAMINOPHEN-1 EAC1 ORAL (19:29)
[2018-10-18] MEDS ORDERED: IBUPROFEN600 MG ORAL (19:29)
[2018-10-18] MEDS ORDERED: CLINDAMYCIN HC300 MG ORAL (19:29)
[2018-10-18 19:40] VITALS: BP 120/78
--- NOTE | 2018-10-18 19:40 | NUR ---
ER Nurse Note: Pt seen, treated, medically cleared for discharge by ERMD. Discharge instuctions and prescriptions given with repeat verbalization by pt. Emphasized to follow up with primay care provider; take whole course of medication. Explained each medication. All orders completed per ERMD orders. Pt a&ox4, VSS, no signs of distress. Abscess drained; wound care provded by traffic analysis technician. ID band removed. All questions answered per pt's questions. Pt left with all belongings, left with own transportation.
== END 2018-10-18 19:40 | disposition home or self-care (01) ==
LOC: EMR 17:39
DX: L03.317 Cellulitis of buttock (principal); L02.31 Cutaneous abscess of buttock; Z23 Encounter for immunization
CPT/HCPCS: 90471; 90715; 99283